=== PATIENT | male | born 1935 | race Caucasian/White ===

== ENCOUNTER 2017-04-01 08:34 | Day surgery (SDC) | payer OTHER, MEDICARE ==
[~2017-04-01] VITALS: Ht 172.7 cm; Wt 80.3 kg
[~2017-04-01 08:34] MED LIST: ALLOPURINOL100 MG PO; AMIODARONE HCL200 MG PO; AMLODIPINE-BEN1 EAC3 PO; ASPIR-LOW81 MG PO; AUGMENTIN875 MG PO; AZOR 5/20 MG1 TABLET PO; AZOR 5/40 MG1 TABLET PO; CYANOCOBALAM1000 MCG PO; DYAZIDE, MA1 CAPSULE PO; FLOMAX0.4 M1 PO; GLUCOPHAGE500 MG PO; GUANFACINE HCL2 MG PO; KLOR-CON 1010 MEQ PO; LIPITOR40 MG PO; MULTAQ400 MG PO; VISION VITAMIN1 EACH PO; VITAMIN B-12500 MC2 PO; VITAMIN B-6100 MG PO; VITAMIN B-6200 MG PO; VITAMIN D31000 UNI2 PO; VITAMIN D32000 UNI1 PO; VITAMIN D32000 UNIT PO; XARELTO20 MG PO; ZANTAC150 MG PO; ZEGERID40 MG PO; [UNRECOGNIZED DRUG - OTHER] PO
[2017-04-01] MEDS ORDERED: KEFLEX500 MG PO (09:16)
[2017-04-01 09:29] LABS: POINT-OF-CARE METER ID UU13113696
[2017-04-01 10:33] LABS: POINT-OF-CARE METER ID UU13113819
== END 2017-04-01 11:20 | disposition home or self-care (01) ==
LOC: CATH 08:34
PROVIDERS: Internal Medicine Cardiovascular Disease
PROC: 5A2204Z Restoration of Cardiac Rhythm, Single (ICD-10-PCS; principal; 2017-04-01)
DX: I48.0 Paroxysmal atrial fibrillation (principal); D50.9 Iron deficiency anemia, unspecified; I73.9 Peripheral vascular disease, unspecified; I11.9 Hypertensive heart disease without heart failure; E11.9 Type 2 diabetes mellitus without complications; I27.2 Other secondary pulmonary hypertension; I35.0 Nonrheumatic aortic (valve) stenosis; I34.0 Nonrheumatic mitral (valve) insufficiency; I31.3 Pericardial effusion (noninflammatory); Z79.01 Long term (current) use of anticoagulants; Z79.84 Long term (current) use of oral hypoglycemic drugs; K21.9 Gastro-esophageal reflux disease without esophagitis
CPT/HCPCS: 82948; 93005

== ENCOUNTER 2018-01-10 11:05 | Emergency (ER) | payer OTHER, MEDICARE ==
[~2018-01-10] VITALS: Ht 172.7 cm; Wt 88.9 kg
[~2018-01-10 11:05] MED LIST changes: +KEFLEX500 MG PO
[2018-01-10 13:21] VITALS: BP 167/101
== END 2018-01-10 13:23 | disposition home or self-care (01) ==
LOC: EME 11:05
DX: Z48.01 Encounter for change or removal of surgical wound dressing (principal); I48.91 Unspecified atrial fibrillation; Z98.890 Other specified postprocedural states; Z79.01 Long term (current) use of anticoagulants; E11.9 Type 2 diabetes mellitus without complications; Z79.84 Long term (current) use of oral hypoglycemic drugs; Z85.828 Personal history of other malignant neoplasm of skin
CPT/HCPCS: 99281; 99283

== ENCOUNTER 2018-02-17 08:35 | Day surgery (SDC) | payer OTHER, MEDICARE ==
[~2018-02-17] VITALS: Ht 175.3 cm; Wt 85.7 kg
[~2018-02-17 08:35] MED LIST changes: +ATORVASTATIN CA20 MG PO; +PANTOPRAZOLE SO40 MG PO; +WARFARIN SODIUM5 MG PO
== END 2018-02-17 11:40 | disposition home or self-care (01) ==
LOC: CATH 08:35 → PAIN 10:00 → CATH 11:40
PROVIDERS: Internal Medicine Cardiovascular Disease
PROC: 5A2204Z Restoration of Cardiac Rhythm, Single (ICD-10-PCS; principal; 2018-02-17)
DX: I48.1 Persistent atrial fibrillation (principal); I11.9 Hypertensive heart disease without heart failure; E78.5 Hyperlipidemia, unspecified; E11.9 Type 2 diabetes mellitus without complications; D64.9 Anemia, unspecified; R00.1 Bradycardia, unspecified; K21.9 Gastro-esophageal reflux disease without esophagitis; Z79.84 Long term (current) use of oral hypoglycemic drugs; Z79.01 Long term (current) use of anticoagulants
CPT/HCPCS: 82948; 93005

== ENCOUNTER 2018-03-23 08:40 | Day surgery (SDC) | payer OTHER, MEDICARE ==
[~2018-03-23] VITALS: Ht 175.3 cm; Wt 86.0 kg
[~2018-03-23 08:40] MED LIST changes: +IRON325 M1 PO; +WARFARIN SODIU2.5 MG PO
== END 2018-03-23 11:55 | disposition home or self-care (01) ==
LOC: CATH 08:40
PROVIDERS: Internal Medicine Cardiovascular Disease
PROC: 5A2204Z Restoration of Cardiac Rhythm, Single (ICD-10-PCS; principal; 2018-03-23)
DX: I48.1 Persistent atrial fibrillation (principal); I44.0 Atrioventricular block, first degree; E11.9 Type 2 diabetes mellitus without complications; I11.9 Hypertensive heart disease without heart failure; E64.9 Sequelae of unspecified nutritional deficiency; E78.5 Hyperlipidemia, unspecified; R00.1 Bradycardia, unspecified; K21.9 Gastro-esophageal reflux disease without esophagitis; Z79.01 Long term (current) use of anticoagulants; Z79.84 Long term (current) use of oral hypoglycemic drugs
CPT/HCPCS: 82948; 93005